=== PATIENT | male | born 1935 | race Caucasian/White ===

== ENCOUNTER → 2023-12-31 11:39 | Outpatient (REF) | payer MEDICARE, SELFPAY ==
[2023-12-31 13:21] LABS: % Basophils 0.7 % (0-2); % Eosinophils 3.2 % (0-6); % Immature Granulocytes 0.5 % (0-0.5); % Lymphocytes 25.9 % (20.5-51.1); % Monocytes 11.5 % (1.7-9.3); % Neutrophils 58.2 % (42.2-75.2); Absolute Eosinophils 0.2 10^3/uL (0-0.7); Absolute Lymphocytes 1.5 10^3/uL (1.2-3.4); Absolute Monocytes 0.7 10^3/uL (0.1-0.6); Absolute Neutrophils 3.4 10^3/uL (1.4-6.5); Mean Corp Hgb Conc. 34.1 g/dL (33.0-37.0); Mean Corpuscular Hgb 31.2 pg (27.0-31.0); Mean Corpuscular Volume 91.5 fL (80.0-94.0); Mean Platelet Volume 9.9 fL (7.4-10.4); Nucleated Red Blood Cells % 0 % (-); Platelet Count 164 10^3/uL (130-400); Red Blood Cell Count 4.81 10^6/uL (4.70-6.10); Red Cell Dist. Width 13.3 % (11.5-14.5); White Blood Cell Count 5.9 10^3/uL (4.8-10.8)
[2023-12-31 14:11] LABS: Urine Albumin Negative (Neg - Trace); Urine Bilirubin Negative (Negative); Urine Character Clear (Clear); Urine Color Yellow; Urine Glucose Negative (Negative); Urine Ketone Negative (Negative); Urine Leukocyte Negative (Negative); Urine Nitrite Negative (Negative); Urine Occult Blood Negative (Negative); Urine Specific Gravity 1.015 (<1.030); Urine Urobilinogen Negative (Neg - 1+)
[2023-12-31 14:33] LABS: ALT (SGPT) 41 U/L (0-50); AST (SGOT) 41 U/L (17-59); Albumin 3.9 g/dl (3.5-5.0); Alkaline Phosphatase 62 U/L (38-126); Blood Urea Nitrogen 11 mg/dl (9-20); Calcium 9.4 mg/dl (8.4-10.2); Carbon Dioxide 31 mmol/L (22-30); Chloride 98 mmol/L (98-107); Glucose 88 mg/dl (70-99); HDL Cholesterol 49 mg/dl; LDL Cholesterol, Calculated 34 mg/dl; Potassium 4.6 mmol/L (3.5-5.1); Sodium 136 mmol/L (135-145); Total Cholesterol 94 mg/dl (50-199); Total Protein 6.8 g/dl (6.3-8.2); Triglyceride 55 mg/dl (10-149); Very Low Density Lipoprotein 11 mg/dl (0-30); eGFR > 60.00
[2024-01-01 11:15] LABS: Glycohemoglobin (HgbA1c) 5.9 % (4.0-5.6)
== END ==
LOC: REG 11:39
PROVIDERS: ATTENDING PHYSICIAN Family Medicine
DX: E78.5 Hyperlipidemia, unspecified (principal); I10 Essential (primary) hypertension; R73.01 Impaired fasting glucose
CPT/HCPCS: 36415; 80053; 80061; 81003; 83036; 85025

== ENCOUNTER 2024-01-08 15:54 | Emergency (ER) | payer MEDICARE, SELFPAY ==
[2024-01-08 15:56] VITALS: BP 144/83; BMI 31.0
[2024-01-08 16:19] LABS: % Basophils 0.6 % (0-2); % Eosinophils 5.2 % (0-6); % Immature Granulocytes 0.6 % (0-0.5); % Lymphocytes 28.4 % (20.5-51.1); % Monocytes 13.4 % (1.7-9.3); % Neutrophils 51.8 % (42.2-75.2); Absolute Eosinophils 0.3 10^3/uL (0-0.7); Absolute Lymphocytes 1.5 10^3/uL (1.2-3.4); Absolute Monocytes 0.7 10^3/uL (0.1-0.6); Absolute Neutrophils 2.8 10^3/uL (1.4-6.5); Hematocrit 42.9 % (39.0-52.0); Hemoglobin 14.7 g/dL (13.0-18.0); Mean Corp Hgb Conc. 34.3 g/dL (33.0-37.0); Mean Corpuscular Hgb 31.3 pg (27.0-31.0); Mean Corpuscular Volume 91.3 fL (80.0-94.0); Mean Platelet Volume 9.3 fL (7.4-10.4); Nucleated Red Blood Cells % 0 % (-); Platelet Count 157 10^3/uL (130-400); Red Cell Dist. Width 13.2 % (11.5-14.5); White Blood Cell Count 5.4 10^3/uL (4.8-10.8)
[2024-01-08 16:34] LABS: ALT (SGPT) 37 U/L (0-50); AST (SGOT) 36 U/L (17-59); Albumin 4.1 g/dl (3.5-5.0); Alkaline Phosphatase 81 U/L (38-126); Blood Urea Nitrogen 15 mg/dl (9-20); Calcium 9.2 mg/dl (8.4-10.2); Carbon Dioxide 28 mmol/L (22-30); Chloride 98 mmol/L (98-107); Estimated Creatinine Clearance 73 ml/min; Glucose 115 mg/dl (70-99); Potassium 4.8 mmol/L (3.5-5.1); Sodium 133 mmol/L (135-145); Total Protein 6.6 g/dl (6.3-8.2); eGFR > 60.00
[2024-01-08 16:39] LABS: INR 1.17; PT 14.7 Sec (11.4-14.6)
[2024-01-08 16:46] LABS: Troponin I < 0.012 ng/ml
[2024-01-08 17:12] VITALS: BP 140/65
--- NOTE | 2024-01-08 17:12 | ED.GENMED ---
History of Present Illness
General
Chief Complaint: Blood Pressure Problem
Source: patient
Time Seen by Provider: 01/08/24 17:06
Travel History
Have you had any contact with someone who has COVID-19?: No
Do you have any symptoms of coronavirus? Fever > 100 degrees, chills, cough, shortness of breath, sore throat, loss of taste or smell, muscle aches, or headache?: No
History of Present Illness
History of Present Illness:
88-year-old male with past medical history of CAD, hypertension, hyperlipidemia presenting to the emergency department for evaluation after he checked his blood pressure earlier today after he was at the gym and noticed his blood pressure was low.
Patient and family report over the last 3 days his blood pressure has been a little lower than normal but today his blood pressure was 88/53. Patient notes that he was asymptomatic at this time and remains asymptomatic since arrival to the
emergency department. Patient has no other concerns at this time and is otherwise denying any nausea, vomiting, bowel changes, urinary symptoms, chest pain, change in oral intake, fevers or recent illnesses or any other concerns.
Past History
Past History
ED Past Medical History: Asthma, CAD, HTN, Hypercholesterolemia and Other (BPH, hypertension, coronary artery disease status post stent, esophageal surgery, sleep apnea)
ED Past Surgical History: Orthopedic
Social History
Tobacco: Non-smoker
Alcohol: Occasional
Drug: None
Personal:
Living: with roommate
Employment: Retired
Family History
Family History: Negative Diabetes, Hypertension or CAD
Review of Systems
Review of Systems
All Other Systems: ROS reviewed and negative except as documented in HPI and ROS
Phy Exam
Physical Exam
Physical Exam:
GENERAL: Alert , in no apparent distress
EYE: conjunctiva clear
NECK: Supple
ENT: o/p clr, mmm.
CARDIAC: Regular rate and rhythm
LUNGS: Clear breath sounds bilaterally, no acute respiratory distress, no wheezes/rales/rhonchi
NEUROLOGICAL: Alert and oriented
SKIN: Warm and dry, skin intact.
MUSCULOSKELETAL: well perfused.
PSYCH: Normal and appropriate interaction.
Scores
Heart Failure Risk
Heart Failure Risk Score: Not Applicable
Heart Score for Chest Pain Patients
STEMI patient?: Not applicable
Withdrawal Assessment of Alcohol
Withdrawal Assessment Completed?: Not applicable
Course
Orders/Labs/Results
Orders:
Orders
01/08/24 16:00
Electrocardiogram (*1) Urgent
Reason for Study: Chest Pain
EKG- Treatment ONCE
01/08/24 16:07
Complete Blood Count/With Diff Urgent
Comprehensive Metabolic Panel Urgent
Prothrombin Time Urgent
Troponin I Urgent
Abnormal Lab Results
01/08/24
16:07
MCH 31.3 H pg
(27.0-31.0)
Absolute Monos (auto) 0.7 H 10^3/uL
(0.1-0.6)
Immature Gran % 0.6 H %
(0-0.5)
Monocytes % 13.4 H %
(1.7-9.3)
PT 14.7 H Sec
(11.4-14.6)
Sodium 133 L mmol/L
(135-145)
Glucose 115 H mg/dl
(70-99)
Total Bilirubin 2.0 H mg/dl
(0.2-1.3)
01/08/24 16:07
01/08/24 16:07
Vital Signs
Initial and Last Documented VS:
Initial Vital Signs
Temp Pulse Resp BP Pulse Ox
98.5 F 80 20 144/83 98
01/08/24 15:56 01/08/24 15:56 01/08/24 15:56 01/08/24 15:56 01/08/24 15:56
Last Documented Vital Signs
Temp Pulse Resp BP Pulse Ox
98.5 F 66 19 140/65 98
01/08/24 15:56 01/08/24 17:12 01/08/24 17:12 01/08/24 17:12 01/08/24 17:12
MDM/Problems Addressed
Differential Diagnosis Includes:
Orthostasis, medication interaction, I do not have concern for infectious etiology
MDM/Problems Addressed:
88-year-old male present emergency department for evaluation of reported low blood pressure at home earlier today. On 2 separate rechecks patient's blood pressure is 140 systolically and greater than 80 diastolically. Patient continues to be
asymptomatic any concerns. 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 I did recommend patient keep a log of his blood pressure
over the few days. He is aware of return precautions emergency department but otherwise stable for discharge home.
*Pulse Oximetry
Patient hypoxic: no
*EKG
Interpreted by ED Provider?: Yes
Heart Rate: 78
Rate: normal
Rhythm: av sequential
*Draw Press Operator Interpretation
Rate: normal
Heart Rate: 80
Rhythm: av sequential
*Critical Care Note
Total Time (30-74mins, 75-104mins- exclusive of procedures): Not Applicable
ED Attending Note
-
Portions of this chart may have been created with voice recognition software.� Occasional wrong word or��sound alike� substitutions may have occurred due to the inherent limitations of voice recognition software.
Discharge Plan
Departure
Patient Disposition: Home (Routine Discharge)
Date of Disposition: 01/08/24
Time of Disposition: 17:12
Patient with high blood pressure during this ER visit?: Yes
Discharge Problem:
intermittent low blood pressure
Instructions: Low Blood Pressure (DC)
Prescriptions:
No Action
aspirin [Adult Low Dose Aspirin] 81 MG tablet,delayed release (DR/EC)
81 mg PO DAILY
citalopram [Celexa] 20 MG tablet
20 mg PO HS
tamsulosin 0.4 MG capsule
0.4 mg PO HS
cyclosporine [Restasis] 10 DROPS dropperette
1 drp BOTH EYES BID PRN (Reason: dry eyes)
fluticasone propion-salmeterol [Advair HFA] 115-21 mcg/actuation HFA aerosol inhaler
2 puff INHALATION R BID
acetaminophen 325 mg Tablet
650 mg PO Q6HPRN PRN (Reason: mild pain, fever, headache) Qty: 0 0RF
nitroglycerin 0.4 mg Tablet, Sublingual
0.4 mg SUBLINGUAL Q5M PRN (Reason: chest pain )
furosemide [Lasix] 40 mg tablet
40 mg PO PRN PRN (Reason: swelling )
amiodarone 200 mg tablet
200 mg PO HS
metoprolol succinate 25 mg tablet extended release 24 hr
25 mg PO HS
lisinopril 2.5 mg tablet
2.5 mg PO HS
rosuvastatin 40 mg tablet
40 mg PO HS
ezetimibe 10 mg Tablet
10 mg PO HS
psyllium Packet
1 packet PO BID
Interventions
Interventions:
*Risk Screen - Suicide Last Done: 01/08/24 15:56
*Neglect/Abuse Screening Last Done: 01/08/24 15:56
ED- Fall Risk Assessment Last Done: 01/08/24 17:13
*ED COVID-19 Vaccine History Last Done: 01/08/24 15:56
*Nursing Disposition Last Done: 01/08/24 17:34
ED- Cardiac Assessment Last Done: 01/08/24 17:13
ED- Neurological Assessment Last Done: 01/08/24 17:13
ED- Pulmonary Assessment Last Done: 01/08/24 17:13
Discharge Date and Time
Discharge Date/Time: 01/08/24 17:35
== END 2024-01-08 17:35 | disposition home or self-care (01) ==
LOC: EMR 15:54
PROVIDERS: Emergency Medicine; EMERGENCY PHYSICIAN Emergency Medicine; FAMILY PHYSICIAN Family Medicine
DX: I95.9 Hypotension, unspecified (principal); I25.10 Atherosclerotic heart disease of native coronary artery without angina pectoris; I10 Essential (primary) hypertension; E78.00 Pure hypercholesterolemia, unspecified; J45.909 Unspecified asthma, uncomplicated; G47.30 Sleep apnea, unspecified; N40.0 Benign prostatic hyperplasia without lower urinary tract symptoms; Z95.5 Presence of coronary angioplasty implant and graft
CPT/HCPCS: 99283; 80053; 84484; 85025; 85610; 93005

== ENCOUNTER → 2024-04-20 10:09 | Outpatient (REF) | payer MEDICARE, SELFPAY ==
[2024-04-20 11:08] LABS: Blood Urea Nitrogen 15 mg/dl (9-20); Carbon Dioxide 31 mmol/L (22-30); Chloride 96 mmol/L (98-107); Glucose 91 mg/dl (70-99); Magnesium 1.9 mg/dl (1.6-2.3); Potassium 4.6 mmol/L (3.5-5.1); Sodium 133 mmol/L (135-145); eGFR > 60.00
[2024-04-20 11:17] LABS: NT-proBNP 2660 pg/ml
== END ==
LOC: REG 10:09
PROVIDERS: ATTENDING PHYSICIAN Internal Medicine Cardiovascular Disease; FAMILY PHYSICIAN Family Medicine
DX: I25.5 Ischemic cardiomyopathy (principal); I47.20 Ventricular tachycardia, unspecified
CPT/HCPCS: 36415; 80048; 83735; 83880

== ENCOUNTER → 2024-06-06 11:58 | Outpatient (REF) | payer MEDICARE, SELFPAY ==
[2024-06-06 14:24] LABS: TSH Reflex To Free T4 1.09 uIU/ml (0.47-4.68)
== END ==
LOC: REG 11:58
PROVIDERS: ATTENDING PHYSICIAN Nurse Practitioner; FAMILY PHYSICIAN Family Medicine
DX: R53.83 Other fatigue (principal)
CPT/HCPCS: 36415; 84443

== ENCOUNTER → 2024-07-13 09:53 | Outpatient (REF) | payer MEDICARE, SELFPAY | LOC: RCS 09:53 | PROVIDERS: ATTENDING PHYSICIAN Nurse Practitioner; FAMILY PHYSICIAN Family Medicine | DX: I47.20 Ventricular tachycardia, unspecified (principal); I25.5 Ischemic cardiomyopathy | CPT/HCPCS: 93306 ==

== ENCOUNTER → 2024-10-31 09:57 | Outpatient (REF) | payer MEDICARE, SELFPAY ==
[2024-10-31 10:58] LABS: % Basophils 0.5 % (0-2); % Eosinophils 5.6 % (0-6); % Immature Granulocytes 0.9 % (0-0.5); % Lymphocytes 26.8 % (20.5-51.1); % Monocytes 11.9 % (1.7-9.3); % Neutrophils 54.3 % (42.2-75.2); Absolute Eosinophils 0.4 10^3/uL (0-0.7); Absolute Immature Granulocytes 0.1 10^3/uL (0-0.05); Absolute Lymphocytes 1.7 10^3/uL (1.2-3.4); Absolute Monocytes 0.8 10^3/uL (0.1-0.6); Absolute Neutrophils 3.5 10^3/uL (1.4-6.5); Hematocrit 44.4 % (39.0-52.0); Hemoglobin 14.7 g/dL (13.0-18.0); Mean Corp Hgb Conc. 33.1 g/dL (33.0-37.0); Mean Corpuscular Hgb 31.6 pg (27.0-31.0); Mean Corpuscular Volume 95.5 fL (80.0-94.0); Mean Platelet Volume 9.2 fL (7.4-10.4); Nucleated Red Blood Cells % 0 % (-); Platelet Count 159 10^3/uL (130-400); Red Blood Cell Count 4.65 10^6/uL (4.70-6.10); Red Cell Dist. Width 13.1 % (11.5-14.5); White Blood Cell Count 6.4 10^3/uL (4.8-10.8)
[2024-10-31 11:25] LABS: ALT (SGPT) 38 U/L (0-50); AST (SGOT) 37 U/L (17-59); Albumin 3.9 g/dl (3.5-5.0); Alkaline Phosphatase 68 U/L (38-126); Blood Urea Nitrogen 15 mg/dl (9-20); Calcium 9.2 mg/dl (8.4-10.2); Carbon Dioxide 33 mmol/L (22-30); Chloride 95 mmol/L (98-107); Glucose 88 mg/dl (70-99); HDL Cholesterol 45 mg/dl; LDL Cholesterol, Calculated 36 mg/dl; Sodium 133 mmol/L (135-145); Total Bilirubin 1.9 mg/dl (0.2-1.3); Total Cholesterol 88 mg/dl (50-199); Total Protein 6.4 g/dl (6.3-8.2); Triglyceride 36 mg/dl (10-149); Very Low Density Lipoprotein 7 mg/dl (0-30); eGFR > 60.00
[2024-10-31 11:31] LABS: Potassium 4.9 mmol/L (3.5-5.1)
[2024-10-31 11:53] LABS: TSH 1.02 uIU/ml (0.47-4.68)
[2024-10-31 12:29] LABS: Glycohemoglobin (HgbA1c) 5.7 % (4.0-5.6)
== END ==
LOC: REG 09:57
PROVIDERS: ATTENDING PHYSICIAN Family Medicine
DX: I10 Essential (primary) hypertension (principal); E78.5 Hyperlipidemia, unspecified; R73.01 Impaired fasting glucose
CPT/HCPCS: 36415; 80053; 80061; 83036; 84443; 85025

== ENCOUNTER → 2025-04-17 08:34 | Outpatient (REF) | payer MEDICARE, SELFPAY ==
[2025-04-17 09:15] LABS: % Basophils 0.8 % (0-2); % Eosinophils 7.2 % (0-6); % Immature Granulocytes 0.5 % (0-0.5); % Lymphocytes 21.7 % (20.5-51.1); % Monocytes 11.3 % (1.7-9.3); % Neutrophils 58.5 % (42.2-75.2); Absolute Basophils 0.1 10^3/uL (0-0.2); Absolute Eosinophils 0.5 10^3/uL (0-0.7); Absolute Lymphocytes 1.4 10^3/uL (1.2-3.4); Absolute Monocytes 0.7 10^3/uL (0.1-0.6); Absolute Neutrophils 3.7 10^3/uL (1.4-6.5); Hematocrit 45.2 % (39.0-52.0); Hemoglobin 15.3 g/dL (13.0-18.0); Mean Corp Hgb Conc. 33.8 g/dL (33.0-37.0); Mean Corpuscular Hgb 31.7 pg (27.0-31.0); Mean Corpuscular Volume 93.8 fL (80.0-94.0); Mean Platelet Volume 9.1 fL (7.4-10.4); Nucleated Red Blood Cells % 0 % (-); Platelet Count 158 10^3/uL (130-400); Red Blood Cell Count 4.82 10^6/uL (4.70-6.10); Red Cell Dist. Width 12.8 % (11.5-14.5); White Blood Cell Count 6.3 10^3/uL (4.8-10.8)
[2025-04-17 10:46] LABS: ALT (SGPT) 37 U/L (0-50); AST (SGOT) 29 U/L (17-59); Albumin 4.4 g/dl (3.5-5.0); Alkaline Phosphatase 70 U/L (38-126); Blood Urea Nitrogen 13 mg/dl (9-20); Calcium 9.6 mg/dl (8.4-10.2); Carbon Dioxide 31 mmol/L (22-30); Chloride 99 mmol/L (98-107); Glucose 95 mg/dl (70-99); HDL Cholesterol 45 mg/dl; LDL Cholesterol, Calculated 37 mg/dl; Potassium 5.2 mmol/L (3.5-5.1); Sodium 137 mmol/L (135-145); Total Bilirubin 2.4 mg/dl (0.2-1.3); Total Cholesterol 93 mg/dl (50-199); Triglyceride 59 mg/dl (10-149); Very Low Density Lipoprotein 11 mg/dl (0-30); eGFR > 60.00
[2025-04-17 10:49] LABS: Glycohemoglobin (HgbA1c) 5.5 % (4.0-5.6)
[2025-04-17 11:24] LABS: TSH 0.76 uIU/ml (0.47-4.68)
== END ==
LOC: REG 08:34
PROVIDERS: ATTENDING PHYSICIAN Family Medicine
DX: I50.22 Chronic systolic (congestive) heart failure (principal); I25.10 Atherosclerotic heart disease of native coronary artery without angina pectoris; I35.1 Nonrheumatic aortic (valve) insufficiency; I49.3 Ventricular premature depolarization; I10 Essential (primary) hypertension; I47.20 Ventricular tachycardia, unspecified; I25.5 Ischemic cardiomyopathy; Z95.810 Presence of automatic (implantable) cardiac defibrillator; G47.33 Obstructive sleep apnea (adult) (pediatric); Z91.199 Patient's noncompliance with other medical treatment and regimen due to unspecified reason; E78.5 Hyperlipidemia, unspecified; R73.01 Impaired fasting glucose; F33.0 Major depressive disorder, recurrent, mild; Z79.899 Other long term (current) drug therapy
CPT/HCPCS: 36415; 80053; 80061; 83036; 84443; 85025

== ENCOUNTER → 2025-09-12 07:59 | Outpatient (REF) | payer MEDICARE, SELFPAY ==
[2025-09-12 09:31] LABS: Hematocrit 43.3 % (39.0-52.0); Hemoglobin 14.7 g/dL (13.0-18.0); Mean Corp Hgb Conc. 33.9 g/dL (33.0-37.0); Mean Corpuscular Volume 95.0 fL (80.0-94.0); Nucleated Red Blood Cells % 0 % (-); Platelet Count 183 10^3/uL (130-400); Red Cell Dist. Width 12.9 % (11.5-14.5)
[2025-09-12 09:56] LABS: ALT (SGPT) 25 U/L (0-50); AST (SGOT) 26 U/L (17-59); Albumin 4.0 g/dl (3.5-5.0); Alkaline Phosphatase 65 U/L (38-126); Blood Urea Nitrogen 10 mg/dl (9-20); Calcium 9.0 mg/dl (8.4-10.2); Carbon Dioxide 31 mmol/L (22-30); Chloride 99 mmol/L (98-107); Glucose 97 mg/dl (70-99); HDL Cholesterol 39 mg/dl; LDL Cholesterol, Calculated 38 mg/dl; Potassium 4.7 mmol/L (3.5-5.1); Sodium 133 mmol/L (135-145); Total Protein 6.6 g/dl (6.3-8.2); Very Low Density Lipoprotein 8 mg/dl (0-30); eGFR > 60.00
[2025-09-12 10:06] LABS: Glycohemoglobin (HgbA1c) 5.7 % (4.0-5.9)
== END ==
LOC: REG 07:59
PROVIDERS: ATTENDING PHYSICIAN Family Medicine
DX: R73.01 Impaired fasting glucose (principal); I10 Essential (primary) hypertension; E78.5 Hyperlipidemia, unspecified
CPT/HCPCS: 36415; 80053; 80061; 83036; 85025

== ENCOUNTER → 2025-10-12 07:47 | Outpatient (REF) | payer MEDICARE, SELFPAY | LOC: RAD 07:47 | PROVIDERS: ATTENDING PHYSICIAN Family Medicine | DX: R10.31 Right lower quadrant pain (principal); R22.2 Localized swelling, mass and lump, trunk; R10.32 Left lower quadrant pain | CPT/HCPCS: 74177; Q9967 ==